=== PATIENT | female | born 1990 | race Caucasian/White ===

== ENCOUNTER 2016-07-10 22:40 | Emergency (ER) | payer SELFPAY ==
--- NOTE | ~2016-07-10 | ER ---
PATIENT'S NAME: RORO FRENCH [facility] AGE: 25 Y [address] ROOM: [place] [id number] LOCATION: [facility] ADMIT DATE: 07/10/2016 ER/Outpatient Report DISCHARGE DATE: 07/10/2016 FAMILY PHYSICIAN: PHYSICIAN, NO ATTENDING PHYSICIAN: Leandro Bagley Time of Arrival: 2240 hours. Time of Exam: 2245 hours. CHIEF COMPLAINT: Chest pain. HISTORY OF PRESENT ILLNESS: The patient states she has had a cough for the past couple of days, but developed some right-sided chest pain tonight, became more severe about 1015 hours. She was at work, she works at [employer]. Denies having any injury to the chest, has not been doing any heavy lifting. States the pain hurts when she moves, takes her breath away at times. ALLERGIES: NO KNOWN ALLERGIES. CURRENT MEDICATIONS: Proventil, she states she did use her inhaler without any relief of her shortness of breath. PAST MEDICAL HISTORY: Asthma. PAST SURGERIES: Tonsillectomy. SOCIAL HISTORY: She smokes and drinks alcohol on an occasional basis. Denies use of drugs. REVIEW OF SYSTEMS: All negative other than those mentioned in the HPI. PHYSICAL EXAMINATION: VITAL SIGNS: She weighed 65.6 kg. Blood pressure is 136/74, pulse of 90, respirations 16, temperature of 98, and O2 saturation 100% on room air. [place] Coma Scale is 15. GENERAL: She is awake, alert, and oriented x4. SKIN: [place], warm, and dry. LUNGS: Respirations are even and nonlabored. Lung sounds are clear PATIENT'S NAME: RORO FRENCH [facility] AGE: 25 Y [address] ROOM: [place] [address] LOCATION: [facility] ADMIT DATE: 07/10/2016 ER/Outpatient Report DISCHARGE DATE: 07/10/2016 FAMILY PHYSICIAN: PHYSICIAN, NO ATTENDING PHYSICIAN: Leandro Bagley throughout. HEART: Regular rate and rhythm. She is tender in the right lateral chest area. LABORATORY DATA: Lab work was drawn. CBC is within normal limits. Chem panel is within normal limits. Cardiac enzymes are negative. Chest x-ray was completed. No acute abnormality is seen. We will await Radiology report. IMPRESSION: Pleuritic chest wall pain. PLAN: Home, rest, fluids. Heat to the area may help. Ibuprofen 3 tabs 3 times a day for the next 5 days. Prescription was written for prednisone to help with inflammation. She is to follow up with her primary provider if symptoms persist or worsen. She verbalized understanding. JANETH FROST APRN FOR MD HARMONY NOEL/vianey /[id number] d: 07/11/16 0334 t: 07/12/16 2315, OUTPATIENT REPORT
[~2016-07-10 22:40] MED LIST: ADVIL200 MG PO; MOTRIN600 MG PO; TYLENOL325 MG PO
[2016-07-10 23:09] LABS: BASOPHIL % 0.5 %; EOSINOPHIL # 0.1 K/uL (0.0-0.5); EOSINOPHIL % 0.8 %; HEMATOCRIT 35.7 % (33.0-46.0); HEMOGLOBIN 12.4 g/dL (11.0-15.0); IMMATURE GRANULOCYTE % 0.3 %; LYMPHOCYTE # 2.2 K/uL (0.8-4.0); LYMPHOCYTE % 28.3 %; MCH 31.7 pg (27.0-34.0); MCHC 34.7 gm/dL (32.0-36.5); MCV 91.3 fl (83.0-98.0); MONOCYTE # 0.6 K/uL (0.0-1.0); MONOCYTE % 7.4 %; MPV 10.9 fl (9.4-12.4); NEUTROPHIL # (ANC) 4.8 K/uL (1.8-7.8); NEUTROPHIL % 62.7 %; NRBC % 0 /100WBC (0-0.00); RBC 3.91 M/uL (3.50-5.00); RDW-CV 11.8 % (11.9-14.6); WBC 7.7 K/uL (4.0-11.0)
[2016-07-10 23:21] LABS: PLATELET COUNT 220 K/uL (150-450)
[2016-07-10 23:27] LABS: ALBUMIN 3.8 gm/dL (3.5-5.0); ALK PHOS 57 IU/L (33-138); ALT 23 IU/L (12-78); AST 14 IU/L (10-40); BLOOD UREA NITROGEN 19 mg/dL (6-24); CALCIUM 8.5 mg/dL (8.5-10.5); CHLORIDE 109 mMol/L (96-110); CO2 25 mMol/L (22-32); CPK 55 IU/L (21-215); CREATININE 0.8 mg/dL (0.5-1.1); ESTIMATED GFR (MDRD EQUATION) > 60; SODIUM 140 mMol/L (135-145); TOTAL PROTEIN 6.6 g/dL (6.0-8.4)
[2016-07-10 23:29] LABS: TOTAL BILIRUBIN 0.3 mg/dL (0.0-1.5)
== END 2016-07-10 23:35 | disposition disaster alternative care site (69) ==
LOC: GMED 22:40
PROVIDERS: Nurse Practitioner Family
DX: R07.81 Pleurodynia (principal); J45.909 Unspecified asthma, uncomplicated; Z90.89 Acquired absence of other organs

== ENCOUNTER 2016-07-22 08:43 | Emergency (ER) | payer SELFPAY ==
--- NOTE | ~2016-07-22 | ER ---
PATIENT'S NAME: RORO FRENCH [facility] AGE: 25 Y [address] ROOM: [place] [address] LOCATION: ED ADMIT DATE: 07/22/2016 ER/Outpatient Report DISCHARGE DATE: 07/22/2016 FAMILY PHYSICIAN: PHYSICIAN, NO ATTENDING PHYSICIAN: Laci Jackson CHIEF COMPLAINT: Abdominal pain. HISTORY OF PRESENT ILLNESS: The patient states that at 10:00 last night she developed severe right-sided abdominal pain. She was able to sleep for a few hours overnight. Nobody else has similar symptoms. She has been passing gas and had some loose bowel movements. She denies any fever, but did vomit. She states that she has never had any significant abdominal surgeries before. Her last menstrual period was 3 days ago. It was a normal period for her. She denies any significant vaginal discharge or malodorous discharge. She just tried home remedies for the pain. She feels most comfortable lying on her stomach. PAST MEDICAL HISTORY: Documented on the record and reviewed by me. SOCIAL HISTORY: Documented on the record and reviewed by me. MEDICATIONS: Documented on the record and reviewed by me. ALLERGIES: DOCUMENTED ON THE RECORD AND REVIEWED BY ME. REVIEW OF SYSTEMS: All systems reviewed and negative except as noted in the HPI. PHYSICAL EXAMINATION: VITAL SIGNS: Blood pressure is 124/71, pulse is 65, respiratory rate is 18, temperature 96.7, and SpO2 is 100% on room air. Pain is rated at 8/10. GENERAL: Age-appropriate female, resting on her stomach on the bed, in no acute distress, in mild discomfort. NEURO: The patient is awake and alert. GCS 15. No focal deficits. No asymmetry. HEENT: Normocephalic, atraumatic. Eyes, PERRL. Oropharynx is clear. NECK: Supple. Trachea is midline. CHEST: Heart has regular rate and rhythm with no murmurs. Lungs are clear to auscultation bilaterally with no rhonchi, wheezes, or rales. PATIENT'S NAME: RORO FRENCH [facility] AGE: 25 Y [address] ROOM: [place] [address] LOCATION: [facility] ADMIT DATE: 07/22/2016 ER/Outpatient Report DISCHARGE DATE: 07/22/2016 FAMILY PHYSICIAN: PHYSICIAN, NO ATTENDING PHYSICIAN: Laci Jackson BACK: Nontender to palpation throughout. No CVA tenderness. ABDOMEN: Grossly benign. The patient did guard initially with a very first touch; however, she relaxed. I was able to palpate significantly throughout with no focal tenderness, no masses, no rebound. Negative Rovsing sign. Negative obturator sign. Psoas sign was equivocal. The bowel sounds were present. Re-exam completely benign. EXTREMITIES: Warm and well perfused. No obvious deformities or abnormalities. SKIN: Warm, dry, and intact. LABORATORY DATA AND X-RAYS: CBC unremarkable. CRP below threshold. HCG below threshold. CMS grossly unremarkable other than minimally elevated chloride. Amylase, lipase, and GGT within normal limits. Procalcitonin below threshold. Urinalysis, no evidence of infection. Lactate is 1.3. Urine gonorrhea and chlamydia were negative. IMPRESSION: Abdominal pain, not otherwise specified. EMERGENCY DEPARTMENT COURSE: The patient was seen and evaluated as above. Location of pain was concerning for hepatobiliary pathology versus appendicitis. Not consistent with ovarian pathology. The patient's exam was benign, and the patient was re-evaluated with persistent benign exam, nonsurgical abdomen. It was felt that further imaging would be inappropriate for her, and her pain was adequately controlled in the emergency department, and she was feeling much better after some fentanyl and Zofran. She was given the option of further imaging; however, I do not think it would have been useful for her. The patient was in agreement that she would rather not have radiation at this time. Her body habitus is such that I do not think ultrasound would be useful as well. Overall, she remained otherwise stable. She agreed to return if there is any worsening of her condition for re-examination. All questions were answered, and the patient was ultimately discharged home with some tramadol for persistent discomfort. She will need to follow up with her primary care physician for further evaluation. Presentation is not consistent with abdominal aortic aneurysm or ovarian torsion or PID. MD NATO KENNY/vianey PATIENT'S NAME: RORO FRENCH [facility] AGE: 25 Y [address] ROOM: [place] [address] LOCATION: [facility] ADMIT DATE: 07/22/2016 ER/Outpatient Report DISCHARGE DATE: 07/22/2016 FAMILY PHYSICIAN: ADRIANNA RODRIGUES ATTENDING PHYSICIAN: Laci Jackson /[id number] d: 07/22/16 2318 t: 07/25/16 2222, OUTPATIENT REPORT
[2016-07-22 09:37] LABS: BASOPHIL % 0.7 %; EOSINOPHIL # 0.1 K/uL (0.0-0.5); EOSINOPHIL % 1.5 %; HEMATOCRIT 34.5 % (33.0-46.0); IMMATURE GRANULOCYTE % 0.3 %; LYMPHOCYTE # 0.9 K/uL (0.8-4.0); LYMPHOCYTE % 15.9 %; MCH 31.5 pg (27.0-34.0); MCHC 34.8 gm/dL (32.0-36.5); MCV 90.6 fl (83.0-98.0); MONOCYTE # 0.5 K/uL (0.0-1.0); MONOCYTE % 8.4 %; MPV 10.6 fl (9.4-12.4); NEUTROPHIL # (ANC) 4.3 K/uL (1.8-7.8); NEUTROPHIL % 73.2 %; NRBC % 0 /100WBC (0-0.00); PLATELET COUNT 183 K/uL (150-450); RBC 3.81 M/uL (3.50-5.00); RDW-CV 11.8 % (11.9-14.6); WBC 5.9 K/uL (4.0-11.0)
[2016-07-22 09:44] LABS: INR - (THERAPEUTIC) 1.04 (0.92-1.07); PROTIME 10.9 SECONDS (9.8-11.4); PTT 27 SECONDS (25-32)
[2016-07-22 09:47] LABS: BILIRUBIN URINE NEGATIVE (NEGATIVE); BLOOD URINE NEGATIVE /UL (NEGATIVE); GLUCOSE URINE NEGATIVE (NEGATIVE); KETONE URINE NEGATIVE (NEGATIVE); LEUKOCYTES URINE 25 /UL (NEGATIVE); NITRITE URINE NEGATIVE (NEGATIVE); PROTEIN URINE NEGATIVE (NEGATIVE); SPEC GRAVITY URINE 1.015 (1.003-1.035); UROBILINOGEN URINE NORMAL (NORMAL)
[2016-07-22 09:51] LABS: COLOR URINE YELLOW (YELLOW); TURBIDITY URINE CLEAR (CLEAR)
[2016-07-22 09:54] LABS: BACTERIA URINE NEGATIVE (NEGATIVE); EPITHELIAL URINE 0-2 #/HPF (NEGATIVE); RBC URINE NEGATIVE #/HPF (NEGATIVE); WBC URINE 0-2 #/HPF (NEGATIVE)
[2016-07-22 10:03] LABS: ALBUMIN 3.9 gm/dL (3.5-5.0); ALK PHOS 56 IU/L (33-138); ALT 16 IU/L (12-78); ANION GAP 10.8 (10.0-19.0); AST 14 IU/L (10-40); BLOOD UREA NITROGEN 19 mg/dL (6-24); CALCIUM 8.2 mg/dL (8.5-10.5); CHLORIDE 111 mMol/L (96-110); CO2 25 mMol/L (22-32); CREATININE 0.7 mg/dL (0.5-1.1); ESTIMATED GFR (MDRD EQUATION) > 60; POTASSIUM 3.8 mMol/L (3.7-5.1); SODIUM 143 mMol/L (135-145); TOTAL PROTEIN 6.3 g/dL (6.0-8.4)
[2016-07-22 10:05] LABS: TOTAL BILIRUBIN 0.5 mg/dL (0.0-1.5)
== END 2016-07-22 10:45 | disposition disaster alternative care site (69) ==
LOC: GMED 08:43
PROVIDERS: Emergency Medicine
DX: R10.9 Unspecified abdominal pain (principal)
CPT/HCPCS: J2405; J3010